=== PATIENT | female | born 1980 | race Caucasian/White ===

== ENCOUNTER → 2023-03-20 10:17 | Outpatient (CLI) | payer BC, SELFPAY ==
--- NOTE | ~2023-03-20 | US_ITS ---
Abdominal Sonogram: Real-time sonographic imaging of the abdomen was performed. Clinical History: Abdominal pain Findings: The liver appears mild echogenic, with no evidence of mass lesion or bile duct dilatation. Main portal vein demonstrates normal direction of flow. The spleen is normal in size without evidenc e of focal lesion. The gallbladder is well distended, and contains multiple echogenic, shadowing gal lstones. No gallbladder wall thickening. The common bile duct measures 3 mm. The visualized pancreas , aorta, and IVC are unremarkable. The right kidney measures 11.4 cm in length and the left kidney m easures 10.4 cm. There is no hydronephrosis. Probable 5 mm nonobstructing right renal stone. Impression: Cholelithiasis. Diffuse fatty infiltration of liver. Probable nonobstructing right renal stone, as above. Reviewed, dictated and finalized at [facility]. Impression: Cholelithiasis. Diffuse fatty infiltration of liver. Probable nonobstructing right renal stone, as above.
== END ==
PROVIDERS: PCP Internal Medicine; Visit Provider Internal Medicine
DX: R10.11 Right upper quadrant pain (principal); K80.20 Calculus of gallbladder without cholecystitis without obstruction; K76.0 Fatty (change of) liver, not elsewhere classified
CPT/HCPCS: 76700

== ENCOUNTER → 2023-04-07 15:05 | Outpatient (CLI) | payer BC, SELFPAY ==
--- NOTE | ~2023-04-07 | MM_ITS ---
EXAMINATION: MM screening eliecer BI w hipolito HISTORY: Screening mammogram TECHNIQUE: Craniocaudal and mediolateral oblique 3-D tomosynthesis images were obtained and synthetic 2-D images were generated. CAD analysis was submitted and interpreted. COMPARISON: No prior mammogram is available for comparison at this institution. BREAST PARENCHYMAL COMPOSITION: There are scattered areas of fibroglandular density. FINDINGS: Occasional bilateral circumscribed reniform opacities consistent with benign process, likel y lymph nodes. There is no evidence of suspicious mass, calcification, or architectural distortion t o suggest malignancy in either breast. There has been no suspicious interval change. IMPRESSION: 1. No mammographic evidence of malignancy. 2. Recommend routine screening mammography in one year. BI-RADS Category 2: Benign finding(s). Reviewed, dictated and finalized at location A.
== END ==
PROVIDERS: PCP Internal Medicine; Visit Provider Internal Medicine
DX: Z12.31 Encounter for screening mammogram for malignant neoplasm of breast (principal)
CPT/HCPCS: 77063; 77067

== ENCOUNTER 2023-09-02 15:24 | Outpatient (CLI) | payer BC, SELFPAY ==
--- NOTE | 2023-09-02 15:30 | ECG_ITS ---
Measurements Intervals [place] Rate: 67 P: 30 MD: 136 QRS: 7 QRSD: 94 T: 18 QT: 389 QTc: 412 Interpretive Statements SINUS RHYTHM BORDERLINE R WAVE PROGRESSION, ANTERIOR LEADS BASELINE ARTIFACT- I, II, III, AVF, V5-V6 BORDERLINE ECG NO PREVIOUS ECG AVAILABLE FOR COMPARISON Electronically Signed On 09-02-2023 16:29:23 [employer] INTERFACE DEVELOPER by Moody Hickman D.O.
[2023-09-02 15:51] LABS: Hematocrit 37.8 % (37.0-47.0); Hemoglobin 12.6 g/dL (12.0-15.0); Mean Corpuscular HGB Conc 33.3 g/dl (32-36); Mean Corpuscular Hemoglobin 29.9 pg (26-34); Mean Corpuscular Volume 89.8 fl (80-100); Mean Platelet Volume 10.1 fl (7.4-10.4); Platelet Count Result 287 k/mm3 (150-375); Red Blood Count 4.21 M/mm3 (4.2-5.4); Red Cell Distribution Width 12.8 % (11.5-14.5); White Blood Count 7.1 K/mm3 (4.5-10.0)
[2023-09-02 16:01] LABS: INR 0.9; Prothrombin Time 12.8 Seconds (11.1-14.7)
[2023-09-02 16:02] LABS: Partial Thromboplastin Time 29.3 SECONDS (22.3-36.8)
[2023-09-02 16:03] LABS: Anion Gap 8 mmol/L (8-16); Blood Urea Nitrogen 12 mg/dL (7-17); Calcium 9.2 mg/dL (8.4-10.2); Carbon Dioxide 26 mmol/L (22-30); Chloride 106 mmol/L (98-107); Estimated Glomerular Filt Rate > 60; Glucose 92 mg/dL (65-110); Potassium 3.8 mmol/L (3.4-5.0); Sodium 140 mmol/L (137-145)
== END 2023-09-02 15:25 | disposition home or self-care (01) ==
LOC: ANHSURGERY 15:27
PROVIDERS: Anesthesiology; PCP Internal Medicine; Visit Provider Obstetrics & Gynecology
DX: Z01.818 Encounter for other preprocedural examination (principal); E78.1 Pure hyperglyceridemia; N92.0 Excessive and frequent menstruation with regular cycle; K76.0 Fatty (change of) liver, not elsewhere classified
CPT/HCPCS: 36415; 80048; 85027; 85610; 85730; 93005

== ENCOUNTER 2023-09-04 02:57 | Day surgery (SDC) | payer BC, SELFPAY ==
[2023-08-29 14:49] VITALS: BMI 39.1
--- NOTE | 2023-08-29 14:54 | PC.NURSE ---
Report to the Outpatient Waiting Room, entrance under the green pavilion located off [facility], at time 8:15 on date 09/04/23. Planned Procedure Time: 10:15. Time changes happen often and if your time is changed the preop area will call you the afternoon before. - You and your visitor will be asked to self-screen and do not enter if you have any COVID symptoms. - A mask is optional within the hospital at this time. Patients may have clear liquids (water, carbonated beverages, clear teas, apple juice) until 3 hours prior to surgery with a maximum of 20 ounces. - No food from midnight until time of surgery Take the following medications with a SIP of water the morning of surgery: NONE DO NOT STOP ANY OF YOUR OTHER PRESCRIPTION MEDICATIONS PRIOR TO SURGERY ?EXCEPT THE FOLLOWING Medications to discontinue per physician: VITAMINS/SUPPLEMENTS Date to take last dose: 08/31/23 Please no make-up, nail [place], hairspray, perfume, deodorant, or body powder the day of surgery. No jewelry (including any body piercings) or valuables the day of surgery, leave them at home. Please take a shower or bath the night before, or the morning of, surgery with an antibacterial soap. Wear comfortable, loose fitting clothing. - Jewelry must be removed prior to entering the operating room. Rings and piercings that are not removed may be cut off. - The hospital will not accept responsibility for valuables. - Please leave all valuables, including medications, at home the day of surgery. If you are going home after surgery, a licensed bellman driver must drive you home. - NO public transportation without another adult if you receive anesthesia. - We recommend that an adult stay with you for 24 hours following discharge. - We also recommend that you do not drive, make important decision, drink alcoholic beverages, or take any drugs that were not prescribed by your health care provider for at least 24 hours after your discharge time. Follow any additional instructions given to you from your surgeon. If you or anyone in your household have experienced Covid symptoms in the past week, please notify your surgeon or the nurse liaison at the phone number below for possible testing. Telephone instructions given to PT - SRIKANTH MILNER and asked if any additional questions and then verbalized understanding. Patient advised to call surgeon office or pre surgery nurse liaison [phone] if any additional questions.
[2023-09-04] VITALS (8 sets, daily range): BP systolic 108–150; BP diastolic 70–89; PULSE 54–71; RESP 12–18; TEMP 36.8–37.1; O2SAT 97–100; BMI 38.5
--- NOTE | 2023-09-04 07:14 | WPDHPUPDATE1 ---
History and Physical Update Update Date/Time: 09/04/23 07:14 History and Physical has been reviewed, including an updated exam of the patient. There are NO changes in the patient's condition. Risks, benefits, and alternatives have been discussed and questions answered. Patient agrees to proceed with procedure.
[2023-09-04] MEDS: KETOROLAC 15 MG/ML VIAL (*BKC) IV PUSH (09:12)
[2023-09-04] MEDS: ACETAMINOPHEN 500 MG TABLET 1000 MG PO (09:12)
--- NOTE | 2023-09-04 09:23 | WPDANESEPPF ---
Anes - Initial Pre Proc Eval Procedure: Operation Date: 09/04/23 10:15 Proposed Procedures p Hysteroscopy Dilation and Curettage with Azra Endometrial Ablation, - Yomi Jean-Baptiste MD s Bilateral Laparoscopic Salpingectomy - Yomi Jean-Baptiste MD Date/Time: 09/04/23 09:23 Surgeon: Yomi Jean-Baptiste MD Pre Op Diagnosis: menorrhagia and desired sterilization Patient Data Age: 43 Gender: F Height: 1.7 m Weight: 113.4 kg Allergies Allergy/AdvReac Type Severity Reaction Status Date / Time No Known Allergies Allergy Mild Verified 08/29/23 14:49 Home Medications Medication Instructions Recorded Confirmed Type fenofibrate 40 mg tablet 40 mg PO HS 08/11/23 08/29/23 History multivitamin 1 tablet PO DAILY 08/29/23 08/29/23 History Patient hx anesthesia problems: none Family hx anesthesia problems: none Results Review: All pre-operative results and documents have been reviewed as part of the pre-operative evaluation. [facility] Past Medical History Medical History Asthma Fatty liver Screening mammogram, encounter for Surgical History Surgical History Delivery by section (05/19/07) failure to dilate Delivery by section (08/28/11) rpt c/s Family History Family History Grandparent Gallstones maternal grandmother Acute myocardial infarction Cerebrovascular accident Breast cancer paternal grandmother Malignant neoplasm of prostate maternal and paternal gradnfathers Other Breast cancer maternal aunts and pt's cousin Daughter Diabetes mellitus Other Hypertension Social History Social History Smoking status: Never smoker Second hand tobacco smoke exposure: Yes Alcohol intake: never Substance use: never Substance use type: does not use Lack of Transportation: No Lack of Food: Never True Current Housing: I Have Housing Concerned About Future Housing: No Difficulty Paying Gas/Electric Bills: No Difficulty Paying for Meds: No Currently Unemployed: No Education: Bachelor's Degree Difficulty w/ Childcare or Family Care: No Living arrangements: with family Additional living arrangements comments: Occupation/Education: occupation 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 Gender identity (if verbalized by the patient): Female Sexual Orientation (if Verbalized by the Patient): Straight or Heterosexual Spiritual care concerns: No Anes - Eval Final PreProcedure Day of Procedure 09/04/23 09:23 Patient weight: obese Heart: regular rate and rhythm Lungs: clear to auscultation Airway: Mallampati scale class II Neurological: alert and oriented Last oral intake: >/= 8 hours ASA classification: II Emergent: no Anesthetic plan: proceed Anesthesia type and monitoring: general ETT and standard monitoring Results Review: All pre-operative results and documents have been reviewed as part of the pre-operative evaluation. Informed Consent: The patient's anesthetic plan and its attendant risks and benefits were discussed with the patient/family/POA. Questions were solicited and answers provided to the satisfaction of the patient/family/POA.
[2023-09-04] MEDS: LACTATED RINGERS 1,000 ML 30 ML IV CONT (09:36)
[2023-09-04] MEDS: SCOPOLAMINE 1.5 MG PATCH TRANSDERM (09:38)
[2023-09-04] MEDS: ceFAZolin 2 GM/D5W 50 ML 2 GM/50 ML BAG IVPB (10:10)
--- NOTE | 2023-09-04 10:53 | W.PM.PROC2 ---
Procedure Note - Detailed Date of Procedure 09/04/23 Pre-op Diagnosis 1. Menometrorrhagia 2. Fibroid uterus 3. Undesired fertility Post-op Diagnosis Same Procedure Performed 1. Hysteroscopy with uterine curettings 2. Endometrial ablation 3. Bilateral laparoscopic salpingectomy Surgeon Yomi Jean-Baptiste MD Anesthesia General Findings Uterus tubes noted without abnormality. Hysteroscopic exam revealed no significant abnormalities the thickened tissue was noted. Description of Procedure Patient prepped and draped in usual manner for this procedure. Cervical instruments were placed for uterine mobility throughout the case. Abdominal trocar sites were marked and trocars were placed under direct visualization. Using the Harmonic scalpel the mesial salpinx were cauterized and cut bilaterally and tubes removed without difficulty. Gas was allowed to escape, there was no bleeding, and incisions approximated using 4-0 Monocryl. Cervix was dilated the hysteroscope to be placed, uterine curettings performed, Azra instrument was placed. Cavity assessment was performed and instrument was activated. At the end of the procedure hysteroscope was again placed with destruction noted throughout. Patient tolerated the procedure well and was sent to recovery room in stable condition. Estimated Blood Loss 10 Drains No Packing No Pathology Yes Complications No immediate complications Condition Stable Disposition PACU [facility] Billing Surgery - Charge Forward: Surgery Billing
[2023-09-04] MEDS: oxyCODONE HCL (*CRX) 5 MG TAB IR PO (12:05)
== END 2023-09-04 12:54 | disposition home or self-care (01) ==
PROVIDERS: PCP Internal Medicine; Visit Provider Obstetrics & Gynecology
PROC: 0U5B8ZZ Destruction of Endometrium, Via Natural or Artificial Opening Endoscopic (ICD-10-PCS; CPT 58563; principal; 2023-09-04 10:15)
PROC: (CPT 49320; 2023-09-04 10:15)
DX: Z30.2 Encounter for sterilization (principal); N92.0 Excessive and frequent menstruation with regular cycle; J45.909 Unspecified asthma, uncomplicated; Z80.3 Family history of malignant neoplasm of breast; Z82.49 Family history of ischemic heart disease and other diseases of the circulatory system; E66.9 Obesity, unspecified; Z68.38 Body mass index [BMI] 38.0-38.9, adult
CPT/HCPCS: 58563; 58661; 88302; 88305; A9270; J0330; J0360; J0690; J1100; J1170; J1200; J1885; J2250; J2405; J2704; J3010; J7120

== ENCOUNTER 2024-05-13 15:20 | Outpatient (CLI) | payer BC, SELFPAY ==
--- NOTE | ~2024-05-13 | MM_ITS ---
EXAMINATION: MM screening eliecer BI w hipolito HISTORY: Screening TECHNIQUE: Craniocaudal and mediolateral oblique 3-D tomosynthesis images were obtained and synthetic 2-D images were generated. CAD analysis was submitted and interpreted. COMPARISON: 04/07/2023 BREAST PARENCHYMAL COMPOSITION: Not dense: There are scattered areas of fibroglandular density. FINDINGS: There is no evidence of suspicious mass, calcification, or architectural distortion to sugg est malignancy in either breast. There has been no suspicious interval change. IMPRESSION: 1. No mammographic evidence of malignancy. 2. Recommend routine screening mammography in one year. BI-RADS Category 1: Negative Reviewed, dictated and finalized at location B.
== END 2024-05-13 15:21 ==
PROVIDERS: PCP Internal Medicine; Visit Provider Obstetrics & Gynecology
DX: Z12.31 Encounter for screening mammogram for malignant neoplasm of breast (principal)
CPT/HCPCS: 77063; 77067

== ENCOUNTER 2024-05-28 08:24 | Outpatient (CLI) | payer BC, SELFPAY ==
--- NOTE | ~2024-05-28 | US_ITS ---
Pelvic ultrasound. Clinical History: Abnormal uterine bleeding Technique: Realtime transabdominal and transvaginal scanning of the pelvis was performed. Color flow Doppler and Doppler spectral analysis were performed. Findings: The uterus is anteverted. The endometrial stripe has a thickness of 10 mm. Probable ill-de fined posterior wall fibroid measuring 3.5 cm in diameter. The right ovary measures 2.6 x 2.9 x 2.1 cm. No significant right ovarian or adnexal mass is seen. The left ovary measures 2.3 x 2.4 x 2.3 cm. No significant left ovarian or adnexal mass is seen. There is no evidence of free fluid in the cul de sac. Impression: 3.5 cm posterior wall intramural fibroid. Reviewed, dictated and finalized at [facility]. Impression: 3.5 cm posterior wall intramural fibroid.
== END 2024-05-28 08:25 ==
PROVIDERS: PCP Obstetrics & Gynecology; Visit Provider Obstetrics & Gynecology
DX: N93.9 Abnormal uterine and vaginal bleeding, unspecified (principal); D25.9 Leiomyoma of uterus, unspecified
CPT/HCPCS: 76830; 76856

== ENCOUNTER 2024-08-17 13:03 | Outpatient (CLI) | payer BC, SELFPAY ==
[2024-08-17 14:24] LABS: Hematocrit 36.2 % (37.0-47.0); Hemoglobin 12.5 g/dL (12.0-15.0); Mean Corpuscular HGB Conc 34.5 g/dl (32-36); Mean Corpuscular Hemoglobin 29.8 pg (26-34); Mean Corpuscular Volume 86.4 fl (80-100); Mean Platelet Volume 10.2 fl (7.4-10.4); Platelet Count Result 260 k/mm3 (150-375); Red Blood Count 4.19 M/mm3 (4.2-5.4); Red Cell Distribution Width 13.4 % (11.5-14.5); White Blood Count 7.1 K/mm3 (4.5-10.0)
== END 2024-08-17 13:04 | disposition home or self-care (01) ==
PROVIDERS: PCP Internal Medicine; Visit Provider Obstetrics & Gynecology
DX: D25.9 Leiomyoma of uterus, unspecified (principal); Z01.818 Encounter for other preprocedural examination
CPT/HCPCS: 36415; 85027; 86850; 86900; 86901

== ENCOUNTER 2024-08-19 01:38 | Day surgery (SDC) | payer BC, SELFPAY ==
--- NOTE | 2024-08-11 16:30 | PC.NURSE ---
Addendum entered by Chiqui Narvaez RN 08/11/24 16:44: Bring your Albuterol inhaler with you the morning of surgery please. Original Note: Report to the Outpatient Waiting Room, entrance under the green pavilion located off [facility], at time _6:00am___ on date [id number]__. Planned Procedure Time: __7:30am .? Time changes happen often and if your time is changed the preop area will call you the afternoon before. - You and your visitor will be asked to self-screen and do not enter if you have any COVID symptoms. Please call surgeon if you need to reschedule. - A mask is optional within the hospital at this time. Patients may have clear liquids (water, carbonated beverages, clear teas, apple juice) until 3 hours prior to surgery with a maximum of 20 ounces. (stop at 4:30am) - No food from midnight until time of surgery and no smoking Take only the following medications with a SIP of water on the morning of surgery: __n/a DO NOT STOP ANY OF YOUR OTHER PRESCRIPTION MEDICATIONS PRIOR TO SURGERY EXCEPT THE FOLLOWING Medications to discontinue per physician ____no vitamins or supplements (patient is not currently taking at this time)____ Please no make-up, nail thai, hairspray, perfume, deodorant, or body powder the day of surgery.? No jewelry (including any body piercings) or valuables the day of surgery, leave them at home.? Please take a shower or bath the night before, or the morning of, surgery with an antibacterial soap.? Wear comfortable, loose fitting clothing.? - Jewelry must be removed prior to entering the operating room.? Rings and piercings that are not removed may be cut off. - The hospital will not accept responsibility for valuables.? - Please leave all valuables, including medications, at home the day of surgery. If you are going home after surgery, a licensed driver medic must drive you home.? - NO public transportation without another adult if you receive anesthesia. - We recommend that an adult stay with you for 24 hours following discharge. - We also recommend that you do not drive, make important decision, drink alcoholic beverages, or take any drugs that were not prescribed by your health care provider for at least 24 hours after your discharge time. For Pediatric surgeries, we recommend two adults accompany the child home. Follow any additional instructions given to you from your surgeon. Telephone instructions given to patient (Netta) and asked if any additional questions and then verbalized understanding. Patient advised to call surgeon office or pre surgery nurse liaison [phone] if any additional questions.
[2024-08-11 16:35] VITALS: BMI 39.7
--- NOTE | 2024-08-18 13:35 | P.HP_ITS ---
H&P: HPI History of Present Illness Date/Time: 08/18/24 13:35 44-year-old 012 female presents for definitive therapy of heavy irregular vaginal bleeding and uterine fibroid. Also failed endometrial ablation. Underwent endometrial ablation last year since that time her cycles of increase not of 5-7 days with 3-5 days very heavy clotting cramping, did have an ultrasound which revealed uterine fibroid. Multiple options were discussed she does desire to proceed with hysterectomy with ovarian preservation. Two prior deliveries and tubal ligation laparoscopically has also been performed in the past. Chief Complaint: Heavy bleeding increased Review of Systems Review of Systems: All systems reviewed & are unremarkable except as noted in HPI and below PMFSH Past Medical History Medical History Asthma Fatty liver Screening mammogram, encounter for Surgical History Surgical History Delivery by section (05/19/07) failure to dilate Delivery by section (08/28/11) rpt c/s History of hysteroscopy (09/04/23) Hysteroscopy with uterine curettings/ Endometrial ablation Bilateral laparoscopic salpingectomy Family History Family History Grandparent Gallstones maternal grandmother Acute myocardial infarction Cerebrovascular accident Breast cancer paternal grandmother Malignant neoplasm of prostate maternal and paternal gradnfathers Other Breast cancer maternal aunts and pt's cousin Daughter Diabetes mellitus Other Hypertension Social History Social History Smoking status: Never smoker Second hand tobacco smoke exposure: Yes (years ago) Alcohol intake: never Substance use: never Substance use type: does not use Lack of Transportation: No Lack of Food: Never True Current Housing: I Have Housing Concerned About Future Housing: No Difficulty Paying Gas/Electric Bills: No Difficulty Paying for Meds: No Currently Unemployed: No Education: Bachelor's Degree Difficulty w/ Childcare or Family Care: No Living arrangements: with family Additional living arrangements comments: Occupation/Education: occupation 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 Gender identity (if verbalized by the patient): Female Sexual Orientation (if Verbalized by the Patient): Straight or Heterosexual Spiritual care concerns: No Meds Home Medications and Allergies Home Medications Medication Instructions Recorded Confirmed Type albuterol 90 mcg-budesonide 80 1 inh inhalation PRN PRN asthma 06/02/24 08/11/24 History mcg/actuation HFA aerosol inhaler (Airsupra) atorvastatin 40 mg tablet 20 mg PO HS 06/02/24 08/11/24 History Allergies Allergy/AdvReac Type Severity Reaction Status Date / Time gadobenic acid Allergy Rash Verified 08/11/24 16:41 [From contrast - MRI] iohexol Allergy Rash Verified 08/11/24 16:41 [From contrast - CT, X-RAY] Exam Const: General: cooperative and healthy appearing Resp: Effort & Inspection: normal respiratory effort Auscultation: clear to auscultation bilaterally Cardio: Rate: regular rate Rhythm: regular rhythm GI: Inspection: normal to inspection Auscultation: normal bowel sounds : External Female Exam: normal external appearance Speculum Exam - Vagina: normal appearance of the vagina Speculum Exam - Cervix: normal appearance of the cervix Bimanual exam- vagina & uterus: enlarged ( 10-12 week size) Bimanual Exam- Adnexa, other: normal adnexae Assessment and Plan Assessment and plan (1) Menorrhagia: Code(s): N92.0 - Excessive and frequent menstruation with regular cycle Status: Acute (2) Fibroid uterus: Code(s): D25.9 - Leiomyoma of uterus, unspecified Status: Acute (3) History of endometrial ablation: Code(s): Z98.890 - Other specified postprocedural states Status: Acute (4) History of section: Code(s): Z98.891 - History of uterine scar from previous surgery Status: Acute Plan proceed with robotic assisted total laparoscopic hysterectomy with bilateral salpingectomy if any tubal segments are remaining. No oophorectomy.
[2024-08-19] VITALS (10 sets, daily range): BP systolic 134–156; BP diastolic 67–95; PULSE 57–84; RESP 12–20; TEMP 36.2–37; O2SAT 94–100
[2024-08-19] MEDS: ACETAMINOPHEN 500 MG TABLET 1000 MG PO ×4 (07:15→23:44)
[2024-08-19] MEDS: LACTATED RINGERS 1,000 ML 30 ML IV CONT ×2 (07:20→09:35)
[2024-08-19] MEDS: KETOROLAC 15 MG/ML VIAL (*BKC) IV PUSH (07:25)
--- NOTE | 2024-08-19 07:29 | WPDANESEPPF ---
Anes - Initial Pre Proc Eval Procedure: Operation Date: 08/19/24 07:30 Proposed Procedures p Robotic Assisted Total Laparoscopic Hysterectomy - Yomi Jean-Baptiste MD Date/Time: 08/19/24 07:29 Surgeon: Yomi Jean-Baptiste MD Pre Op Diagnosis: uterine fibroids Patient Data Age: 44 Gender: F Height: 1.7 m Weight: 115.2 kg Allergies Allergy/AdvReac Type Severity Reaction Status Date / Time iodine Allergy Intermediate redness/rash Verified 08/19/24 06:28 at site of topical application Home Medications Medication Instructions Recorded Confirmed Type albuterol 90 mcg-budesonide 80 1 inh inhalation PRN PRN asthma 06/02/24 08/19/24 History mcg/actuation HFA aerosol inhaler (Airsupra) atorvastatin 40 mg tablet 20 mg PO HS 06/02/24 08/19/24 History icosapent ethyl 1 gram capsule 1 g PO DAILY 08/19/24 08/19/24 History (Vascepa) Patient hx anesthesia problems: other (myalgias) Family hx anesthesia problems: post op nausea/vomiting Results Review: All pre-operative results and documents have been reviewed as part of the pre-operative evaluation. [facility] Past Medical History Medical History Asthma Fatty liver Screening mammogram, encounter for Surgical History Surgical History Delivery by section (05/19/07) failure to dilate Delivery by section (08/28/11) rpt c/s History of hysteroscopy (09/04/23) Hysteroscopy with uterine curettings/ Endometrial ablation Bilateral laparoscopic salpingectomy Family History Family History Grandparent Gallstones maternal grandmother Acute myocardial infarction Cerebrovascular accident Breast cancer paternal grandmother Malignant neoplasm of prostate maternal and paternal gradnfathers Other Breast cancer maternal aunts and pt's cousin Daughter Diabetes mellitus Other Hypertension Social History Social History Smoking status: Never smoker Second hand tobacco smoke exposure: Yes (years ago) Alcohol intake: never Substance use: never Substance use type: does not use Lack of Transportation: No Lack of Food: Never True Current Housing: I Have Housing Concerned About Future Housing: No Difficulty Paying Gas/Electric Bills: No Difficulty Paying for Meds: No Currently Unemployed: No Education: Bachelor's Degree Difficulty w/ Childcare or Family Care: No Living arrangements: with family Additional living arrangements comments: Occupation/Education: occupation 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 Gender identity (if verbalized by the patient): Female Sexual Orientation (if Verbalized by the Patient): Straight or Heterosexual Spiritual care concerns: No Anes - Eval Final PreProcedure Day of Procedure 08/19/24 07:29 Patient weight: morbidly obese Heart: regular rate and rhythm Lungs: clear to auscultation Airway: Mallampati scale class II Neurological: alert and oriented Last oral intake: >/= 8 hours ASA classification: III Emergent: no Anesthetic plan: proceed Anesthesia type and monitoring: general ETT and standard monitoring Results Review: All pre-operative results and documents have been reviewed as part of the pre-operative evaluation. Informed Consent: The patient's anesthetic plan and its attendant risks and benefits were discussed with the patient/family/POA. Questions were solicited and answers provided to the satisfaction of the patient/family/POA.
[2024-08-19] MEDS: SCOPOLAMINE 1 MG PATCH 1 PATCH TRANSDERM (07:30)
--- NOTE | 2024-08-19 07:30 | WPDHPUPDATE1 ---
History and Physical Update Update Date/Time: 08/19/24 07:30 History and Physical has been reviewed, including an updated exam of the patient. There are NO changes in the patient's condition. Risks, benefits, and alternatives have been discussed and questions answered. Patient agrees to proceed with procedure.
[2024-08-19] MEDS: ceFAZolin 2 GM/D5W 50 ML 2 GM/50 ML BAG IVPB (07:43)
[2024-08-19 07:53] LABS: BEDSIDEPREGUCG Negative (Negative)
--- NOTE | 2024-08-19 09:58 | W.PM.PROC2 ---
Procedure Note - Detailed Date of Procedure 08/19/24 Pre-op Diagnosis 1. Menometrorrhagia 2. Dysmenorrhea 3. Uterine fibroid 4. Failed endometrial ablation Post-op Diagnosis Same Procedure Performed 1. Robotic assisted total laparoscopic hysterectomy with ovarian preservation Surgeon Yomi Jean-Baptiste MD Anesthesia General Findings Enlarged globular uterus, tubes surgically absent, ovaries without abnormality. Description of Procedure Patient prepped and draped in usual manner for this procedure. Cervical measurements were taken and instruments were placed for mobility throughout the case. Abdominal trocar sites were then marked and trocars were placed under direct visualization. [employer] Keyur system was attached to the trocars and the surgeon moved to the console as after instruments were placed under direct visualization. Small amount of adhesions of omentum to the anterior abdominal wall were taken down without difficulty. Round ligament bilaterally was cauterized cut and bladder flap developed without difficulty. Prior to developing the bladder flap 200cc of fluid replaced to delineate the edges of the bladder, this was then emptied and refilled after the bladder had been taken down to be certain there was no damage or spillage and there was not. Utero-ovarian ligaments were then cauterized and cut to remove the ovaries from the uterus, and the posterior leaf of the broad ligament was cauterized and cut to identify the uterine vessels. These vessels then cauterized and cut bilaterally and then the anterior cul-de-sac was entered and this was carried circumferentially to separate the cervix from the vagina. Surgeon then moved to the vagina and uterus was delivered without difficulty. Surgeon moved back to the console and the cuff was closed using V lock suture from the right angle past the midline and then be getting from the left angle back to the midline as well. Irrigation was undertaken there was no significant bleeding. [place] arm was placed empirically. Gas was allowed to escape trocars removed and incisions approximated using 4-0 Monocryl. Patient was then sent to the recovery room in stable condition. Estimated Blood Loss 100 Drains No Packing No Pathology Yes Complications No immediate complications Condition Stable Disposition PACU [facility] Billing Surgery - Charge Forward: Surgery Billing
[2024-08-19] MEDS: fentaNYL CITRATE INJ (*CRX) 100 MCG/2 ML VIAL 25 MCG IV PUSH ×2 (10:06→10:09)
[2024-08-19] MEDS: oxyCODONE HCL (*CRX) 5 MG TAB IR 10 MG PO (11:09)
--- NOTE | 2024-08-19 11:29 | PHAR ---
HOME MED: AIRSPURA (ALBUTEROL AND BUDESONIDE) 90 MCG/ 80 MCG PER INHALATION. VERIFIED BY PHARMACY.
[2024-08-19] MEDS: KETOROLAC 30 MG/ML VIAL (*BKC) IV PUSH ×3 (12:03→23:44)
[2024-08-19] MEDS: SIMETHICONE 80 MG TAB.CHEW PO ×2 (12:03→17:30)
[2024-08-19] MEDS: DOCUSATE SODIUM 100 MG CAPSULE PO (17:30)
[2024-08-19] MEDS: ATORVASTATIN 20 MG TABLET PO (21:22)
[2024-08-19] MEDS: oxyCODONE HCL (*CRX) 5 MG TAB IR PO (21:22)
[2024-08-20 00:26] VITALS: BP 116/63; PULSE 78; RESP 16; TEMP 36.7; O2SAT 99
[2024-08-20 04:15] VITALS: BP 118/63; PULSE 58; RESP 12; TEMP 36.6; O2SAT 97
[2024-08-20] MEDS: IBUPROFEN 600 MG TABLET PO (05:42)
[2024-08-20] MEDS: ACETAMINOPHEN 500 MG TABLET 1000 MG PO (05:42)
[2024-08-20 07:40] VITALS: BP 148/70; PULSE 60; RESP 16; TEMP 37; O2SAT 99
[2024-08-20] MEDS: SIMETHICONE 80 MG TAB.CHEW PO (08:02)
[2024-08-20] MEDS: OMEGA 3 POLYUNSAT FATTY ACIDS 1 GM CAP PO (08:02)
[2024-08-20] MEDS: DOCUSATE SODIUM 100 MG CAPSULE PO (08:02)
[2024-08-20 08:36] LABS: Basophils Percent Auto 0.4 % (0.2-1.2); Eosinophils Absolute Auto 0.1 K/mm3 (0-0.3); Eosinophils Percent Auto 0.8 % (0-4.4); Hemoglobin 11.8 g/dL (12.0-15.0); Immature Granulocyte Absolute 0.09 K/mm3 (0.00-0.031); Immature Granulocyte Percent A 0.9 % (0-0.5); Lymphocytes Absolute Auto 1.91 K/mm3 (0.9-3.2); Lymphocytes Percent Auto 18.6 % (18.3-44.2); Mean Corpuscular HGB Conc 33.7 g/dl (32-36); Mean Corpuscular Hemoglobin 29.2 pg (26-34); Mean Corpuscular Volume 86.6 fl (80-100); Mean Platelet Volume 10.2 fl (7.4-10.4); Monocytes Absolute Auto 0.5 K/mm3 (0.1-0.6); Monocytes Percent Auto 5.3 % (2.6-8.5); Neutrophils Absolute Auto 7.6 K/mm3 (1.3-6.7); Platelet Count Result 270 k/mm3 (150-375); Red Blood Count 4.04 M/mm3 (4.2-5.4); Red Cell Distribution Width 13.7 % (11.5-14.5); White Blood Count 10.3 K/mm3 (4.5-10.0)
== END 2024-08-20 09:36 | disposition home or self-care (01) ==
LOC: ANHSURGERY 06:08 → ANHOB2 15:57
PROVIDERS: PCP Internal Medicine; Visit Provider Obstetrics & Gynecology
PROC: (CPT 58571; principal; 2024-08-19 07:30)
DX: D25.1 Intramural leiomyoma of uterus (principal); D25.0 Submucous leiomyoma of uterus; N88.8 Other specified noninflammatory disorders of cervix uteri; N87.9 Dysplasia of cervix uteri, unspecified; G89.18 Other acute postprocedural pain; J45.909 Unspecified asthma, uncomplicated; E66.01 Morbid (severe) obesity due to excess calories; Z68.39 Body mass index [BMI] 39.0-39.9, adult; Z79.51 Long term (current) use of inhaled steroids; Z98.890 Other specified postprocedural states; Z98.891 History of uterine scar from previous surgery; Z80.3 Family history of malignant neoplasm of breast; Z80.42 Family history of malignant neoplasm of prostate; Z82.49 Family history of ischemic heart disease and other diseases of the circulatory system
CPT/HCPCS: 58571; S2900; 36415; 85025; 88307; 99199; A9270; J0690; J1100; J1885; J2003; J2250; J2405; J2704; J3010; J7030; J7120; Q9968

== ENCOUNTER 2025-05-16 10:34 | Outpatient (CLI) | payer BC, SELFPAY ==
--- NOTE | ~2025-05-16 | MM_ITS ---
EXAMINATION: MM screening eliecer BI w hipolito HISTORY: Screening TECHNIQUE: Craniocaudal and mediolateral oblique 3-D tomosynthesis images were obtained and synthetic 2-D images were generated. CAD analysis was submitted and interpreted. COMPARISON: Comparison to multiple prior studies sequentially, with oldest reviewed study dated 04/07. BREAST PARENCHYMAL COMPOSITION: Not dense: There are scattered areas of fibroglandular density. FINDINGS: There is no evidence of suspicious mass, calcification, or architectural distortion to sugg est malignancy in either breast. There has been no suspicious interval change. IMPRESSION: 1. No mammographic evidence of malignancy. 2. Recommend routine screening mammography in one year. BI-RADS Category 1: Negative Reviewed, dictated and finalized at location B.
== END 2025-05-16 10:35 | disposition home or self-care (01) ==
LOC: MICIMG 10:35
PROVIDERS: PCP Internal Medicine; Visit Provider Obstetrics & Gynecology
DX: Z12.31 Encounter for screening mammogram for malignant neoplasm of breast (principal)
CPT/HCPCS: 77063; 77067

== ENCOUNTER 2025-10-17 10:00 | Outpatient (CLI) | payer BC, SELFPAY ==
--- NOTE | ~2025-10-17 | MR_ITS ---
EXAMINATION: MR brain/brain stem wo con DATE: 10/17/2025 10:32 INDICATION: Migraine, unspecified, not intractable. TECHNIQUE: Magnetic resonance imaging (MRI) of the brain and brainstem was performed without intravenous contrast. COMPARISON: None. FINDINGS: There is no intracranial hemorrhage, acute infarction, or abnormal intracranial mass lesion. The ventricles are normal in size. There is mild mucosal thickening in the paranasal sinuses. The orbits are normal. The mastoid air cells are normal. IMPRESSION: 1. Normal brain. Reviewed, dictated and finalized at location E. [employer] IMPRESSION: 1. Normal brain.
== END 2025-10-17 10:01 | disposition home or self-care (01) ==
LOC: MICIMG 10:02
PROVIDERS: PCP Internal Medicine; Visit Provider Internal Medicine
DX: G43.909 Migraine, unspecified, not intractable, without status migrainosus (principal)
CPT/HCPCS: 70551